=== PATIENT | female | born 2000 | race Caucasian/White ===

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

== ENCOUNTER 2018-06-24 19:49 | Emergency (ER) | payer OTHER ==
[~2018-06-24] VITALS: Ht 162.6 cm; Wt 81.1 kg
[~2018-06-24 19:49] MED LIST changes: +ALBU18HF INHALATION; -ALBU8.5H3 INH; +ALBU8.5H8 INH; +DIPH25CA6 PO; +EPIN0.3A3 IM; +FLOV220 INHALATION; +FLUT9.9S NASAL; +IBUP-1541 PO; -IBUP400T22 PO; +OLOP5DRO12 BOTH EYES; +POLY10DR19 RIGHT EYE
[2018-06-24 20:39] VITALS: Ht 162.6 cm; Wt 81.1 kg
[2018-06-24] MEDS ORDERED: ALBUTEROL 0.083% (NEB) 2.5 MG/3 ML AMP HHN STA (22:19)
--- NOTE | 2018-06-24 22:23 | ERD ---
ER Documentation Chief Complaint Chief Complaint c/o sob and cough worsened today. hx asthma +wheezing HPI This is a 18-year-old female presents emergency department with complaints of productive (greenish/yellowish phlegm) cough for about 3 days, shortness of breath today. Also stated that she has been using her inhaler without relief. LMP: Stated it was 2 days ago. A0. Denies headache, head injury, loss of consciousness, dizziness, neck pain, neck stiffness, throat pain, difficulty swallowing, difficulty breathing lying flat, shoulder pain, chest pain, back pain, abdominal pain, nausea, vomiting, constipation, diarrhea, urinary symptoms, or possibility being , loss of bowel and bladder control, trauma, injury, falls, difficulty walking due to pain, numbness or tingling sensation, calf pain, recent travel, recent major surgery in the last 3 weeks, calf pain, recent long travel, recent exposure to any illness, recent antibiotic use in the last 3 months, fever, chills, seizures. Past medical history: Asthma. Medication: Pro-air. Surgical history: Denies. Social: Denies smoking, use of alcoholic beverages, use of illegal drugs. ROS All systems reviewed and are negative except as per history of present illness. Medications Home Meds Active Scripts Ibuprofen* (Motrin*) 800 Mg Tab, 800 MG PO Q6H PRN for PAIN AND OR ELEVATED TEMP, #20 TAB Prov:ROBERTO ESTRELLA 06/24/18 Prednisone* (Prednisone*) 20 Mg Tab, 40 MG PO DAILY for 3 Days, TAB Prov:ROBERTO ESTRELLA 06/24/18 Benzonatate* (Tessalon Perle*) 100 Mg Capsule, 100 MG PO Q8H PRN for COUGH, #15 CAP Prov:PASROBERTO CAPONE 06/24/18 Albuterol Sulfate* (Proair HFA*) 8.5 Gm Hfa.aer.ad, 2 PUFF INH Q4 PRN for WHEEZING, #1 INHALER Prov:ROBERTO ESTRELLA 06/24/18 Azithromycin* (Zithromax*) 250 Mg Tablet, 250 MG PO .ZPACK DIRECTED, #6 TAB TAKE 500 MG (2 TABS) THE FIRST DAY THEN 250 MG (1 TAB) DAYS 2-5 Prov:ROBERTO ESTRELLA 06/24/18 Polymyxin B Sulfate-TMP* (Polymyxin B-TMP Eye Drops*) 10 Ml Drops, 1 DROP RIGHT EYE QID for 7 Days, #1 EA Prov:MARY KELLOGG PA-C 09/20/17 Albuterol Sulfate* (Ventolin HFA*) 18 Gm Hfa.aer.ad, 2 PUFF INHALATION Q4H, #1 INHALER Prov:JEREMIAH,CULLEN 08/24/17 Fluticasone Propionate* (Flovent* HFA 220) 12 Gm Inha, 2 PUFF INHALATION BID, #1 INHALER Prov:JEREMIAH,CULLEN 08/24/17 Prednisone* (Prednisone*) 20 Mg Tab, 40 MG PO DAILY for 4 Days, TAB Prov:JEREMIAH,CULLEN 08/24/17 Olopatadine* (Patanol* Ophth) 0.1% - 5 Ml Drops, 1 DROP BOTH EYES BID, #1 EA Prov:SUHAIL MARQUEZ PA-C 08/14/17 Fluticasone Propionate (Flonase Allergy Relief) 9.9 Ml [place].susp, 1 SPRAY NASAL DAILY, #1 BOTTLE TO EACH NOSTRIL Prov:FAVIAN CHAPA MD 06/18/17 Albuterol Sulfate* (Albuterol Sulfate* Neb) 0.083%-3 Ml Neb, 2.5 MG NEB Q3H PRN for WHEEZING AND SOB, #30 VIAL Prov:FAVIAN CHAPA MD 06/18/17 Albuterol Sulfate* (Proair HFA*) 8.5 Gm Hfa.aer.ad, 2 PUFF INH Q4, #1 INHALER Prov:FAVIAN CHAPA MD 06/18/17 Prednisone* (Prednisone*) 20 Mg Tab, 60 MG PO DAILY for 6 Days, TAB 60 mg by mouth for 3 days, then 40 mg by mouth for 3 days. Start June 19, 2017. Prov:FAVIAN CHAPA MD 06/18/17 Prednisone* (Prednisone*) 20 Mg Tab, 20 MG PO DAILY for 4 Days, TAB Prov:JOHNNY BANEGAS PA-C 12/23/16 Epinephrine (EPINEPHRINE) 0.3 Mg/0.3 Ml Pen.injctr, 0.3 MG IM ONCE PRN for ALLERGIC REACTION, #1 SYR Prov:JOHNNY BANEGAS PA-C 12/23/16 Diphenhydramine Hcl* (Diphenhydramine Hcl*) 25 Mg Capsule, 25-50 MG PO Q6 PRN for ITCHING, #30 CAP Prov:JOHNNY BANEGAS PA-C 12/23/16 Prednisone* (Prednisone*) 50 Mg Tablet, 50 MG PO DAILY, #5 TAB Prov:FERNANDO DENG NP 09/13/16 Ibuprofen* (Motrin*) 600 Mg Tab, 600 MG PO Q6H PRN for PAIN AND OR ELEVATED TEMP, #30 TAB Prov:FERNANDO DENG NP 09/13/16 Cetirizine Hcl* (Zyrtec*) 10 Mg Capsule, 10 MG PO DAILY, #30 TAB.CHEW Prov:FERNANDO DENG NP 09/13/16 Tvwasmjhrbj-Y-Bovokzszhz Hb* (Guaifenesin* DM Syrup) 120 Ml Syrup, 10 ML PO Q4H PRN for COUGH, #120 ML Prov:FERNANDO DENG NP 09/13/16 Albuterol Sulfate* (Proair HFA*) 8.5 Gm Hfa.aer.ad, 2 PUFF INH Q4H PRN for WHEEZING AND SOB, #1 INHALER Prov:FERNANDO DENG NP 09/13/16 Erythromycin* (Erythromycin* Ophthalmic) 1 Applic Oint, 1 APPLIC LEFT EYE QID for 7 Days, EA Prov:FAVIAN CHAPA MD 05/30/16 Diphenhydramine Hcl* (Benadryl*) 25 Mg Cap, 25 MG PO Q6, #15 CAP Prov:FAVIAN CHAPA MD 05/30/16 Naphazoline Hcl/Phenir Mal (Naphcon-A Eye Drops) 15 Ml Drops, 15 ML OP QID for 5 Days, BOTTLE Prov:FAVIAN CHAPA MD 05/30/16 Ibuprofen* (Ibuprofen*) 400 Mg Tablet, 400 MG PO Q6H PRN for PAIN, #60 TAB Prov:JOHNNY BANEGAS PA-C 11/15/15 Beclomethasone Dip* (Qvar 40*) 7.3 Gm Inha, 1 PUFF INH BID, #1 INHALER Prov:MARIO MARTINEZ MD 06/04/15 Diphenhydramine Hcl* (Benadryl*) 50 Mg Cap, 50 MG PO Q6 PRN for ALLERGIC REACTION, #20 CAP Prov:MARIO MARTINEZ MD 06/04/15 Famotidine* (Pepcid*) 20 Mg Tablet, 20 MG PO BID for 3 Days, TAB Prov:MARIO MARTINEZ MD 06/04/15 Prednisone* (Prednisone*) 20 Mg Tab, 40 MG PO DAILY for 3 Days, TAB Prov:MARIO MARTINEZ MD 06/04/15 Reported Medications Albuterol Sulfate* (Albuterol Sulfate* Neb) 0.083%-3 Ml Neb, 2.5 MG NEB Q3H PRN for WHEEZING AND SOB, #30 VIAL 06/04/15 Allergies Allergies: Coded Allergies: No Known Drug Allergy (Verified Allergy, Unknown, 09/20/17) PMhx/Soc Medical and Surgical Hx: pt denies Surgical Hx History of Surgery: No Anesthesia Reaction: No Hx Neurological Disorder: No Hx Respiratory Disorders: Yes (ASTHMA) Hx Cardiac Disorders: No Hx Psychiatric Problems: No Hx Miscellaneous Medical Probl: No Hx Alcohol Use: No Hx Substance Use: No Hx Tobacco Use: No Smoking Status: Never smoker Physical Exam Vitals Physical Exam Const: No acute distress Head: Atraumatic Eyes: Normal Conjunctiva. Eyeballs are not sunken. No signs of severe dehydration. ENT: Normal External Ears, Nose and Mouth. Bilateral ears: TM is not erythematous with no bleeding. No discharge with no hearing loss. No mastoid tenderness. Nose: No nasal flaring. There is no frontal or maxillary sinus tenderness palpation. Throat: Uvula is midline and nondisplaced. Tonsils are +1 bilaterally without redness without exudates. Tolerating secretions. Patent airway. Speaks full and clear sentences. No tripoding. Neck: Full range of motion. No meningismus. No nuchal rigidity. No signs of meningeal irritation. Resp: Wheezing bilaterally. No accessory muscle use in breathing. Cardio: Regular rate and rhythm, no murmurs Abd: Soft, non tender, non distended. Normal bowel sounds Skin: No petechiae or rashes. No skin tenting. No signs of severe dehydration. Back: No midline or flank tenderness Ext: No cyanosis, or edema Neur: Awake and alert. No neurological deficit. Psych: Normal Mood and Affect Results 24 hrs Current Medications Medications Dose Sig/Reji Start Time Status Last (Trade) Ordered Route PRN Stop Time Admin Dose Reason Admin 10 mg ONCE ONCE 06/24/18 DC 06/24/18 Dexamethasone IM 22:30 06/24/18 22:27 (Decadron) 22:31 Albuterol 5 mg ONCE STAT 06/24/18 DC 06/24/18 (Proventil HHN 22:19 06/24/18 22:36 0.083% (Neb)) 22:20 Ipratropium 0.5 mg ONCE ONCE 06/24/18 DC 06/24/18 Vowinckel HHN 22:30 06/24/18 22:35 (Atrovent 22:31 0.02% (Neb)) Procedures/MDM Diagnostic tests: Clinical exam. Treatment: Dexamethasone IM. Albuterol and Atrovent breathing treatment. Re-evaluation: Respirations even and unlabored. No retractions noted. No accessory muscle use in breathing. Lung sounds are clear to auscultation. No tripoding. No neurological deficit. Stated that she feels much better examined that she is ready to go home. Differential diagnosis I have low suspicion for sepsis, severe serious bacterial infection, meningitis, mastoiditis, peritonsillar abscess, bronchospasm, status asthmaticus. Final diagnosis: Asthmatic bronchitis. Bronchitis. Asthma exacerbation. Prescription: Pro-air. Azithromycin. Tessalon Perles. Claritin daily. Motrin. Follow-up with PCP in the next 24-48 hours. Come back here in the emergency department for any new symptoms or any worsening symptoms. All questions and concerns were answered. Patient and family members verbalized understanding and agreed with plan of care. Hemodynamically stable on discharge. Departure Diagnosis: Primary Impression: Asthmatic bronchitis Additional Impression: Asthma exacerbation Condition: Stable Additional Instructions: Follow-up with PCP in the next 24-48 hours. Come back here in the emergency department for any new symptoms or any worsening symptoms. ROBERTO ESTRELLA Jun 24, 2018 22:23
[2018-06-24] MEDS ORDERED: AZIT250T PO (22:24)
[2018-06-24] MEDS ORDERED: ALBU8.5H8 INH (22:24)
[2018-06-24] MEDS ORDERED: IBUP800T48 PO (22:25)
[2018-06-24] MEDS ORDERED: PRED20TA PO (22:25)
[2018-06-24] MEDS ORDERED: BENZ-6 PO (22:25)
[2018-06-24] MEDS ORDERED: DEXAMETHASONE 10 MG/ML 1 ML INJ IM ONE (22:30)
[2018-06-24] MEDS ORDERED: IPRATROPIUM (NEB) 0.5 MG/2.5 ML AMP HHN ONE (22:30)
[2018-06-24 23:07] VITALS: BP 129/84; PULSE 73; RESP 18
== END 2018-06-24 23:08 | disposition home or self-care (01) ==
LOC: FTE 19:49
DX: J45.901 Unspecified asthma with (acute) exacerbation (principal)
CPT/HCPCS: 94664; 96372; J1100; Z7502; Z7610

== ENCOUNTER 2018-11-18 20:36 | Emergency (ER) | payer OTHER ==
[~2018-11-18] VITALS: Ht 160 cm; Wt 81.1 kg
[~2018-11-18 20:36] MED LIST changes: +AZIT250T PO; +BENZ-6 PO; +BENZ200C68 PO; +D-ME473S2 PO; +GUAI120S25 PO; -GUAI120S26 PO; +IBUP800T48 PO; +MED4DP PO
[2018-11-18 20:42] VITALS: BP 131/70; PULSE 97; RESP 20; Ht 160 cm; Wt 81.1 kg
--- NOTE | 2018-11-18 22:04 | ERD ---
ER Documentation Chief Complaint Chief Complaint ASTHMA SOB USED A INHALER NOT WORKING HPI 18-year-old female presented to the emergency department with her mother complaining of wheezing for 1 day. Symptoms began this morning. She has had some mild shortness of breath associated with productive cough. Symptoms are mild. She states her albuterol inhaler is and she is requesting a refill. She has past medical history of asthma but denies other conditions. No other symptoms reported currently. ROS All systems reviewed and are negative except as per history of present illness. Medications Home Meds Active Scripts Methylprednisolone* (Medrol* DOSE PACK) 4 Mg/Dose-Pack Tab.ds.pk, 4 MG PO . DIRECTED, #1 PACKET Prov:KLEBER TUCKER PA-C 11/18/18 Dextromethorphan Hb-Promethazine Hcl* (Promethazine DM* Syrup) 473 Ml Syrup, 5 ML PO Q6 PRN for COUGH, #120 ML Prov:KLEBER TUCKER PA-C 11/18/18 Benzonatate* (Benzonatate*) 200 Mg Capsule, 200 MG PO TID PRN for COUGH, #15 CAP Prov:KLEBER TUCKER PA-C 11/18/18 Albuterol Sulfate* (Ventolin HFA*) 18 Gm Hfa.aer.ad, 2 PUFF INHALATION Q4H, #1 INHALER Prov:KLEBER TUCKER PA-C 11/18/18 Ibuprofen* (Motrin*) 800 Mg Tab, 800 MG PO Q6H PRN for PAIN AND OR ELEVATED TEMP, #20 TAB Prov:ROBERTO ESTRELLA 06/24/18 Prednisone* (Prednisone*) 20 Mg Tab, 40 MG PO DAILY for 3 Days, TAB Prov:PASROBERTO CAPONE 06/24/18 Benzonatate* (Tessalon Perle*) 100 Mg Capsule, 100 MG PO Q8H PRN for COUGH, #15 CAP Prov:ROBERTO ESTRELLA 06/24/18 Albuterol Sulfate* (Proair HFA*) 8.5 Gm Hfa.aer.ad, 2 PUFF INH Q4 PRN for WHEEZING, #1 INHALER Prov:ROBERTO ESTRELLA 06/24/18 Azithromycin* (Zithromax*) 250 Mg Tablet, 250 MG PO .ZPACK DIRECTED, #6 TAB TAKE 500 MG (2 TABS) THE FIRST DAY THEN 250 MG (1 TAB) DAYS 2-5 Prov:ROBERTO ESTRELLA 06/24/18 Polymyxin B Sulfate-TMP* (Polymyxin B-TMP Eye Drops*) 10 Ml Drops, 1 DROP RIGHT EYE QID for 7 Days, #1 EA Prov:MARY KELLOGG PA-C 09/20/17 Albuterol Sulfate* (Ventolin HFA*) 18 Gm Hfa.aer.ad, 2 PUFF INHALATION Q4H, #1 INHALER Prov:JEREMIAH,CULLEN 08/24/17 Fluticasone Propionate* (Flovent* HFA 220) 12 Gm Inha, 2 PUFF INHALATION BID, #1 INHALER Prov:JEREMIAH,CULLEN 08/24/17 Prednisone* (Prednisone*) 20 Mg Tab, 40 MG PO DAILY for 4 Days, TAB Prov:JEREMIAH,CULLEN 08/24/17 Olopatadine* (Patanol* Ophth) 0.1% - 5 Ml Drops, 1 DROP BOTH EYES BID, #1 EA Prov:SUHAIL MARQUEZ PA-C 08/14/17 Fluticasone Propionate (Flonase Allergy Relief) 9.9 Ml [place].susp, 1 SPRAY NASAL DAILY, #1 BOTTLE TO EACH NOSTRIL Prov:FAVIAN CHAPA MD 06/18/17 Albuterol Sulfate* (Albuterol Sulfate* Neb) 0.083%-3 Ml Neb, 2.5 MG NEB Q3H PRN for WHEEZING AND SOB, #30 VIAL Prov:FAVIAN CHAPA MD 06/18/17 Albuterol Sulfate* (Proair HFA*) 8.5 Gm Hfa.aer.ad, 2 PUFF INH Q4, #1 INHALER Prov:FAVIAN CHAPA MD 06/18/17 Prednisone* (Prednisone*) 20 Mg Tab, 60 MG PO DAILY for 6 Days, TAB 60 mg by mouth for 3 days, then 40 mg by mouth for 3 days. Start June 19, 2017. Prov:FAVIAN CHAPA MD 06/18/17 Prednisone* (Prednisone*) 20 Mg Tab, 20 MG PO DAILY for 4 Days, TAB Prov:JOHNNY BANEGAS PA-C 12/23/16 Epinephrine (EPINEPHRINE) 0.3 Mg/0.3 Ml Pen.injctr, 0.3 MG IM ONCE PRN for ALLERGIC REACTION, #1 SYR Prov:JOHNNY BANEGAS PA-C 12/23/16 Diphenhydramine Hcl* (Diphenhydramine Hcl*) 25 Mg Capsule, 25-50 MG PO Q6 PRN for ITCHING, #30 CAP Prov:JOHNNY BANEGAS PA-C 12/23/16 Prednisone* (Prednisone*) 50 Mg Tablet, 50 MG PO DAILY, #5 TAB Prov:FERNANDO DENG NP 09/13/16 Ibuprofen* (Motrin*) 600 Mg Tab, 600 MG PO Q6H PRN for PAIN AND OR ELEVATED TEMP, #30 TAB Prov:FERNANDO DENG NP 09/13/16 Cetirizine Hcl* (Zyrtec*) 10 Mg Capsule, 10 MG PO DAILY, #30 TAB.CHEW Prov:FERNANDO DENG NP 09/13/16 Qhegqfhdkpi-I-Ixdtjeoygi Hb* (Guaifenesin* DM Syrup) 120 Ml Syrup, 10 ML PO Q4H PRN for COUGH, #120 ML Prov:FERNANDO DENG NP 09/13/16 Albuterol Sulfate* (Proair HFA*) 8.5 Gm Hfa.aer.ad, 2 PUFF INH Q4H PRN for WHEEZING AND SOB, #1 INHALER Prov:FERNANDO DENG NP 09/13/16 Erythromycin* (Erythromycin* Ophthalmic) 1 Applic Oint, 1 APPLIC LEFT EYE QID for 7 Days, EA Prov:FAVIAN CHAPA MD 05/30/16 Diphenhydramine Hcl* (Benadryl*) 25 Mg Cap, 25 MG PO Q6, #15 CAP Prov:FAVIAN CHAPA MD 05/30/16 Naphazoline Hcl/Phenir Mal (Naphcon-A Eye Drops) 15 Ml Drops, 15 ML OP QID for 5 Days, BOTTLE Prov:FAVIAN CHAPA MD 05/30/16 Ibuprofen* (Ibuprofen*) 400 Mg Tablet, 400 MG PO Q6H PRN for PAIN, #60 TAB Prov:JOHNNY BANEGAS PA-C 11/15/15 Beclomethasone Dip* (Qvar 40*) 7.3 Gm Inha, 1 PUFF INH BID, #1 INHALER Prov:MARIO MARTINEZ MD 06/04/15 Diphenhydramine Hcl* (Benadryl*) 50 Mg Cap, 50 MG PO Q6 PRN for ALLERGIC REACTION, #20 CAP Prov:MARIO MARTINEZ MD 06/04/15 Famotidine* (Pepcid*) 20 Mg Tablet, 20 MG PO BID for 3 Days, TAB Prov:MARIO MARTINEZ MD 06/04/15 Prednisone* (Prednisone*) 20 Mg Tab, 40 MG PO DAILY for 3 Days, TAB Prov:MARIO MARTINEZ MD 06/04/15 Reported Medications Albuterol Sulfate* (Albuterol Sulfate* Neb) 0.083%-3 Ml Neb, 2.5 MG NEB Q3H PRN for WHEEZING AND SOB, #30 VIAL 06/04/15 Allergies Allergies: Coded Allergies: No Known Drug Allergy (Verified Allergy, Unknown, 09/20/17) PMhx/Soc History of Surgery: No Anesthesia Reaction: No Hx Neurological Disorder: No Hx Respiratory Disorders: Yes (ASTHMA) Hx Cardiac Disorders: No Hx Psychiatric Problems: No Hx Miscellaneous Medical Probl: No Hx Alcohol Use: No Hx Substance Use: No Hx Tobacco Use: No Smoking Status: Never smoker FmHx Family History: No diabetes Physical Exam Vitals Vital Signs Date Temp Pulse Resp B/P (MAP) Pulse Ox O2 O2 Flow FiO2 Time Delivery Rate 11/18/18 98.9 97 20 131/70 96 20:42 (90) Physical Exam Const: No acute distress Head: Atraumatic Eyes: Normal Conjunctiva ENT: Normal External Ears, Nose and Mouth. Posterior pharynx is clear. No tonsillar enlargement. Uvula is midline. No exudates. Neck: Full range of motion. No meningismus. Resp: Clear to auscultation bilaterally. No respiratory distress. No wheezing. Cardio: Regular rate and rhythm, no murmurs Skin: No petechiae or rashes Back: No midline or flank tenderness Ext: No cyanosis, or edema Neur: Awake and alert Psych: Normal Mood and Affect Procedures/MDM 18-year-old female presented to the emergency department complaining of wheezing. Pulmonary examination is within normal limits. Vital signs are stable. Patient is nontoxic and well-appearing. Patient's respiratory status has stabilized while in the department and is appropriate for outpatient work up. Exam and work up not consistent w/ impending respiratory failure or cardiovascular collapse. Departure Diagnosis: Primary Impression: Asthma with acute exacerbation Condition: Fair Patient Instructions: Asthma, Acute (Adult) Referrals: [facility] YOU HAVE RECEIVED A MEDICAL SCREENING EXAM AND THE RESULTS INDICATE THAT YOU DO NOT HAVE A CONDITION THAT REQUIRES URGENT TREATMENT IN THE EMERGENCY DEPARTMENT. FURTHER EVALUATION AND TREATMENT OF YOUR CONDITION CAN WAIT UNTIL YOU ARE SEEN IN YOUR DOCTORS OFFICE WITHIN THE NEXT 1-2 DAYS. IT IS YOUR RESPONSIBILITY TO MAKE AN APPOINTMENT FOR FOLOW-UP CARE. IF YOU HAVE A PRIMARY DOCTOR --you should call your primary doctor and schedule an appointment IF YOU DO NOT HAVE A PRIMARY DOCTOR YOU CAN CALL OUR PHYSICIAN REFERRAL HOTLINE AT IF YOU CAN NOT AFFORD TO SEE A PHYSICIAN YOU CAN CHOSE FROM THE FOLLOWING [facility] [address] [facility]. [facility] [place] [address] [facility]. [facility] [address] [facility]. [facility] [address] [facility]. [facility] [address] [facility]. [employer] [facility] [address] Additional Instructions: Call your primary care doctor TOMORROW for an appointment during the next 1-2 days.See the doctor sooner or return here if your condition worsens before your appointment time. KLEBER TUCKER PA-C Nov 18, 2018 22:04
== END 2018-11-18 21:48 | disposition home or self-care (01) ==
LOC: FTE 20:36
DX: J45.901 Unspecified asthma with (acute) exacerbation (principal)
CPT/HCPCS: 99283